=== PATIENT | female | born 1970 | race Caucasian/White ===

== ENCOUNTER → 2019-09-09 | Outpatient (CLI) | payer BC ==
--- NOTE | 2019-09-12 09:39 | MM ---
Reason for exam: screening (asymptomatic). Last mammogram was performed 5 years and 1 month ago. History: Patient is postmenopausal and had first child at age 38. Family history of breast cancer in grandmother and breast cancer in cousin at age 21. Benign stereotactic core biopsy of the right breast, February 13, 2005. Physical Findings: A clinical breast exam by your physician is recommended on an annual basis and results should be correlated with mammographic findings. MG 3D Screening Mammo W/Cad Bilateral CC and MLO view(s) were taken. Prior study comparison: August 08, 2014, left breast MG work up mamm w CAD LT. August 02, 2014, bilateral MG screening mammo w CAD. The breast tissue is heterogeneously dense. This may lower the sensitivity of mammography. There is a stable left upper outer quadrant mass. No suspicious abnormality. Right biopsy marker noted. ASSESSMENT: Benign, BI-RAD 2 RECOMMENDATION: Routine screening mammogram of both breasts in 1 year.
== END | disposition home or self-care (01) ==
LOC: RADMAMWWP 07:59
PROVIDERS: ATTEND Family Medicine
DX: Z12.31 Encounter for screening mammogram for malignant neoplasm of breast (principal)
CPT/HCPCS: 77063; 77067

== ENCOUNTER 2021-08-09 14:17 | Emergency (ER) | payer BC ==
[2021-08-09 15:35] VITALS: RESP 20; TEMP 100.3
--- NOTE | 2021-08-09 15:35 | ED ---
General Adult HPI - General Source: patient, RN notes reviewed Mode of arrival: ambulatory Limitations: no limitations <Rasheed Toth - Last Filed: 08/09/21 15:33> <Laura Phipps - Last Filed: 08/09/21 20:02> - General Chief complaint: Fever Stated complaint: Covid + wants infusion Time Seen by Provider: 08/09/21 15:20 - History of Present Illness Initial comments: 50-year-old female presents emergency from chief complaint of COVID-19 positive. Patient's H symptoms started primarily on Thursday. Patient is here for monoclonal antibody confusion. Patient appears she'll cough congestion buttocks no significant shortness of breath patient has no complaints of nausea vomiting diarrhea constipation (Rasheed Toth) Patient's been tolerating oral intake without difficulty. She last took Tylenol earlier this morning. She is slightly febrile upon arrival, his vitals are within normal limits. (Laura Phipps) - Related Data Allergies Allergy/AdvReac Type Severity Reaction Status Date / Time Penicillins Allergy Rash/Hives Verified 08/09/21 15:36 Review of Systems ROS Other: All systems not noted in ROS Statement are negative. <Rasheed Toth - Last Filed: 08/09/21 15:33> ROS Other: All systems not noted in ROS Statement are negative. <Laura Phipps - Last Filed: 08/09/21 20:02> ROS Statement: Those systems with pertinent positive or pertinent negative responses have been documented in the HPI. General Exam Limitations: no limitations General appearance: alert, in no apparent distress Head exam: Present: atraumatic, normocephalic, normal inspection Eye exam: Present: normal appearance, PERRL, EOMI. Absent: scleral icterus, conjunctival injection, periorbital swelling Respiratory exam: Present: normal lung sounds bilaterally. Absent: respiratory distress, wheezes, rales, rhonchi, stridor Cardiovascular Exam: Present: regular rate, normal rhythm, normal heart sounds. Absent: systolic murmur, diastolic murmur, rubs, gallop, clicks Neurological exam: Present: alert, oriented X3, CN II-XII intact Skin exam: Present: warm, dry, intact, normal color. Absent: rash <Rasheed Toth - Last Filed: 08/09/21 15:33> Course Vital Signs 08/09/21 08/09/21 15:33 18:20 Temperature 100.3 F H Pulse Rate 79 69 Respiratory 20 20 Rate Blood Pressure 122/77 112/73 O2 Sat by Pulse 93 L 97 Oximetry Medical Decision Making <Rasheed Toth - Last Filed: 08/09/21 15:33> <Laura Phipps - Last Filed: 08/09/21 20:02> - Medical Decision Making patient will receive monoclonal antibodies and discharged stable condition. (Rasheed Toth) Patient's vital signs are stable, she is stable for discharge. Return parameters were discussed with her and she verbalized understanding. Case discussed with Dr. Lorenzo. (Laura Phipps) Disposition <Rasheed Toth - Last Filed: 08/09/21 15:33> Is patient prescribed a controlled substance at d/c from ED?: No Time of Disposition: 20:01 <Laura Phipps - Last Filed: 08/09/21 20:02> Clinical Impression: COVID-19 Disposition: HOME SELF-CARE Condition: Stable Instructions (If sedation given, give patient instructions): Coronavirus Disease 2019 (COVID-19) Additional Instructions: Please return to the Emergency Department if symptoms worsen or any other concerns. Referrals: Shasta Lopez MD [Primary Care Provider] - 1-2 days
[2021-08-09] MEDS ORDERED: SODIUM CHLORIDE 0.9% 50 ML IVPB ONE (16:00)
[2021-08-09] MEDS ORDERED: CASIRIVIMAB (REGN10933) (EUA) 600 MG, IMDEVIMAB (REGN10987) (EUA) 600 MG in SODIUM CHLO... IVPB ONE (16:00)
[2021-08-09] MEDS ORDERED: ACETAMINOPHEN TAB 500 MG TAB PO STA (18:08)
[2021-08-09 19:16] VITALS: BP 112/73; PULSE 69
== END 2021-08-09 20:14 | disposition home or self-care (01) ==
LOC: EC 14:17
DX: U07.1 COVID-19 (principal)
CPT/HCPCS: 96361; 99283

== ENCOUNTER → 2022-02-10 | Outpatient (CLI) | payer BC ==
--- NOTE | 2022-02-11 11:40 | MM ---
Reason for exam: screening (asymptomatic). Last mammogram was performed 2 years and 5 months ago. History: Patient is postmenopausal and had first child at age 38. Family history of breast cancer in grandmother and breast cancer in cousin at age 21. Benign stereotactic core biopsy of the right breast, February 13, 2005. Physical Findings: A clinical breast exam by your physician is recommended on an annual basis and results should be correlated with mammographic findings. MG Screening Mammo w CAD Bilateral CC and MLO view(s) were taken. Prior study comparison: September 09, 2019, bilateral MG 3d screening mammo w/cad. August 08, 2014, left breast MG work up mamm w CAD LT. The breast tissue is heterogeneously dense. This may lower the sensitivity of mammography. Nodularity left breast is stable. No significant changes when compared with prior studies. ASSESSMENT: Benign, BI-RAD 2 RECOMMENDATION: Routine screening mammogram of both breasts in 1 year.
== END | disposition home or self-care (01) ==
LOC: RADMAMWWP 07:21
PROVIDERS: ATTEND Family Medicine
DX: Z12.31 Encounter for screening mammogram for malignant neoplasm of breast (principal); Z78.0 Asymptomatic menopausal state; Z80.3 Family history of malignant neoplasm of breast
CPT/HCPCS: 77067

== ENCOUNTER → 2023-02-11 | Outpatient (CLI) | payer BC ==
--- NOTE | 2023-02-12 16:49 | MM ---
Reason for Exam: Screening (asymptomatic). Last screening mammogram was performed 12 month(s) ago. Patient History: Menarche at age 12. First Full-Term at age 38. Late child-bearing (after 30). Postmenopausal. Patient has history of breast feeding. 02/13/2005, Benign Stereotactic Core Biopsy on the right side. Paternal grandmother had breast cancer, age 65. Maternal cousin had breast cancer, age 21. Risk Values: Rowena 5 year model risk: 1.8%. NCI Lifetime model risk: 13.5%. Prior Study Comparison: 08/08/2014 Left Diagnostic Mammogram, [facility]. 09/09/2019 Bilateral Screening Mammogram, [facility]. 02/10/2022 Bilateral Screening Mammogram, [facility]. Tissue Density: The breast tissue is heterogeneously dense. This may lower the sensitivity of mammography. Findings: Analyzed By CAD. Abdomen appears symmetrical and stable. Chronic nodularity is in the upper outer mid left breast. Core marker is within the right breast. No suspicious groups of microcalcifications, spiculated or lobular masses, architectural distortion or other secondary signs of malignancy are mammographically apparent. Overall Assessment: Benign, BI-RAD 2 Management: Screening Mammogram of both breasts in 1 year. A negative mammogram report should not preclude additional follow up of suspicious palpable abnormalities. Patient should continue monthly self breast exam. A clinical breast exam by your physician is recommended on an annual basis and results should be correlated with mammographic findings. Electronically signed and approved by: Charles Recinos D.O. Radiologis
== END | disposition home or self-care (01) ==
LOC: RADMAMWWP 07:26
PROVIDERS: ATTEND Family Medicine
DX: Z12.31 Encounter for screening mammogram for malignant neoplasm of breast (principal); Z78.0 Asymptomatic menopausal state; Z80.3 Family history of malignant neoplasm of breast; Z98.890 Other specified postprocedural states
CPT/HCPCS: 77063; 77067

== ENCOUNTER → 2024-04-13 | Outpatient (CLI) | payer BC ==
--- NOTE | 2024-04-18 14:13 | MM ---
Reason for Exam: Screening (asymptomatic). Last mammogram was performed 1 year(s) and 2 month(s) ago. Patient History: Menarche at age 12. First Full-Term at age 38. Late child-bearing (after 30). Postmenopausal. Patient has history of breast feeding. 02/13/2005, Benign Stereotactic Core Biopsy on the right side. Paternal grandmother had breast cancer, age 65. Maternal cousin had breast cancer, age 21. Risk Values: Rowena 5 year model risk: 1.9%. NCI Lifetime model risk: 13.3%. Prior Study Comparison: 09/09/2019 Bilateral Screening Mammogram, [facility]. 02/10/2022 Bilateral Screening Mammogram, [facility]. 02/11/2023 Bilateral MG 3D screening mammo w/cad, [facility]. Tissue Density: There are scattered areas of fibroglandular density. Findings: Analyzed By CAD. Right breast biopsy clip. Right breast: There is no suspicious group of microcalcifications or new suspicious mass. Benign-appearing calcifications right breast. Left breast: There is no suspicious group of microcalcifications or new suspicious mass. Benign-appearing calcifications left breast. Overall Assessment: Benign, BI-RAD 2 Management: Screening Mammogram of both breasts in [address] [facility] will attempt to contact patient to return for supplemental views and ultrasound if indicated. Patient should continue monthly self-breast exams. A clinical breast exam by your physician is recommended on an annual basis. This exam should not preclude additional follow-up of suspicious palpable abnormalities. Note on Rowena scores and lifetime risk: 1. A Rowena score greater than 3% is considered moderate risk. If this is the case, consider specialist referral to assess eligibility for a risk reducing agent. 2. If overall lifetime risk for the development of breast cancer is 20% or higher, the patient may qualify for future screening with alternating mammogram and breast MRI. Electronically signed and approved by: Kade Nelson DO
== END | disposition home or self-care (01) ==
LOC: RADMAMWWP 16:45
PROVIDERS: ATTEND Family Medicine
DX: Z12.31 Encounter for screening mammogram for malignant neoplasm of breast (principal); Z80.3 Family history of malignant neoplasm of breast; Z78.0 Asymptomatic menopausal state
CPT/HCPCS: 77063; 77067

== ENCOUNTER → 2025-04-18 | Outpatient (CLI) | payer BC ==
--- NOTE | 2025-04-18 09:38 | US ---
EXAMINATION TYPE: US abdomen complete DATE OF EXAM: 04/18/2025 COMPARISON: NONE CLINICAL INDICATION: Female, 54 years old with history of R74.01 ELEVATION OF LEVELS OF LIVER TRANSAM INASE L; elevated liver enzymes. Exam limited due to bowel gas. TECHNIQUE: Grayscale and color Doppler imaging of the abdomen was performed. FINDINGS: EXAM MEASUREMENTS: Liver Length: 14.7 cm Gallbladder Wall: 0.3 cm CBD: 0.3 cm, color Doppler imaging was utilized to isolate the common bile duct for measurement. Spleen: 9.5 cm Right Kidney: Not visualized due to bowel gas. Left Kidney: 11.3 x 4.9 x 4.1 cm TELLERS SUPERVISOR NOTES: Pancreas: Obscured by bowel gas Liver: Increased attenuation, no dilated ducts, masses or cysts. Gallbladder: No stones seen Evidence for sonographic Neal's sign: No CBD: wnl Spleen: wnl Right Kidney: Obscured by overlying bowel gas Left Kidney: wnl, No hydronephrosis, calculi or masses seen Upper IVC: Limted Abd Aorta: wnl The liver is homogenous. The intrahepatic portion of the IVC and proximal abdominal aorta are within normal limits. There is no evidence of cholelithiasis. Common bile duct is unremarkable. The visu alized portions of the pancreas are homogenous. The spleen is unremarkable. Kidneys are symmetric a nd free of hydronephrosis. No renal lesions are seen. IMPRESSION: 1. No evidence for acute process 2. Hepatic steatosis. [facility], , 04/18/2025 9:36 AM
== END | disposition home or self-care (01) ==
LOC: RADUSWWP 08:21
PROVIDERS: ATTEND Family Medicine
DX: K76.0 Fatty (change of) liver, not elsewhere classified (principal); R74.01 Elevation of levels of liver transaminase levels
CPT/HCPCS: 76700

== ENCOUNTER → 2025-04-24 | Outpatient (CLI) | payer BC ==
--- NOTE | 2025-04-24 10:00 | XR ---
EXAMINATION TYPE: XR shoulder limited RT DATE OF EXAM: 04/24/2025 9:55 AM COMPARISON: None. CLINICAL INDICATION: Female, 54 years old with history of M25.511 PAIN IN RIGHT SHOULDER, Pain TECHNIQUE: XR shoulder limited RT 3 view(s) obtained. FINDINGS: The humeral head articulates with the glenoid. The acromio-clavicular junction is normal. No acute fractures or dislocations are evident. A follow up study can be performed 7-10 days from acute trauma for continued pain. MRI can be perfor med if soft tissue evaluation would be of benefit. IMPRESSION: 1. No acute osseous shoulder abnormality. [facility], , 04/24/2025 9:57 AM
== END | disposition home or self-care (01) ==
LOC: LABWHC1 09:40
PROVIDERS: ATTEND Family Medicine
DX: M25.511 Pain in right shoulder (principal)

== ENCOUNTER → 2025-05-16 | Outpatient (CLI) | payer BC ==
--- NOTE | 2025-05-16 08:12 | MM ---
Reason for Exam: Screening (asymptomatic). Last mammogram was performed 1 year(s) and 1 month(s) ago. Patient History: Menarche at age 12. First Full-Term at age 38. Late child-bearing (after 30). Postmenopausal. Patient has history of breast feeding. 02/13/2005, Benign Stereotactic Core Biopsy on the right side. Paternal grandmother had breast cancer, age 65. Maternal cousin had breast cancer, age 21. Risk Values: Rowena 5 year model risk: 1.9%. NCI Lifetime model risk: 13.1%. Prior Study Comparison: 09/09/2019 Bilateral Screening Mammogram, [facility]. 02/10/2022 Bilateral Screening Mammogram, [facility]. 02/11/2023 Bilateral MG 3D screening mammo w/cad, [facility]. 04/13/2024 Bilateral MG 3D screening mammo w/cad, [facility]. Tissue Density: The breasts are heterogeneously dense, which may obscure small masses. Findings: Analyzed By CAD. There is no suspicious group of microcalcifications or new suspicious mass in either breast. Overall Assessment: Benign, BI-RAD 2 Management: Screening Mammogram of both breasts in 1 year. . Patient should continue monthly self-breast exams. A clinical breast exam by your physician is recommended on an annual basis. This exam should not preclude additional follow-up of suspicious palpable abnormalities. Note on Rowena scores and lifetime risk: 1. A Rowena score greater than 3% is considered moderate risk. If this is the case, consider specialist referral to assess eligibility for a risk reducing agent. 2. If overall lifetime risk for the development of breast cancer is 20% or higher, the patient may qualify for future screening with alternating mammogram and breast MRI. [facility], , 05/16/2025 8:09 AM. Electronically signed and approved by: Juan Peraza M.D. Radiologis
== END | disposition home or self-care (01) ==
LOC: RADMAMWWP 07:12
PROVIDERS: ATTEND Family Medicine
DX: Z12.31 Encounter for screening mammogram for malignant neoplasm of breast (principal); R92.333 Mammographic heterogeneous density, bilateral breasts; Z78.0 Asymptomatic menopausal state; Z80.3 Family history of malignant neoplasm of breast
CPT/HCPCS: 77063; 77067